=== PATIENT | male | born 1965 | race Two or more races ===

== ENCOUNTER 2021-05-26 15:51 | Emergency (ER) | payer SELFPAY ==
[~2021-05-26] VITALS: Ht 172.7 cm; Wt 56.7 kg
--- NOTE | 2021-05-26 16:20 | NUR ---
Dr Patel at the bedside for MSE.
[2021-05-26] MEDS ORDERED: HYDROCODONE/APAP 5-325MG TABLET PO ONE (16:30)
[2021-05-26] MEDS ORDERED: HYDROCODONE/APAP 5-325MG TABLET ONE (16:33)
[2021-05-26] MEDS ORDERED: IBUP-1955 PO (17:00)
[2021-05-26] MEDS ORDERED: HYDR-4209 PO (17:00)
--- NOTE | 2021-05-26 17:29 | NUR ---
Crutches dispensed. Pt instructed on proper use of crutches. Patient able to demonstrate correct use of crutches.
[2021-05-26 17:35] VITALS: BP 130/82
--- NOTE | 2021-05-26 17:36 | NUR ---
Patient given written and verbal discharge instructions. Patient verbalizes understanding of instructions. Patient is ambulatory with steady gait. Refuses offer of custodial placement. Patient given list of available shelters in surrounding area.
== END 2021-05-26 17:36 | disposition home or self-care (01) ==
LOC: ER 15:56
DX: S93.401A Sprain of unspecified ligament of right ankle, initial encounter (principal); X50.9XXA Other and unspecified overexertion or strenuous movements or postures, initial encounter; Y93.02 Activity, running; Y92.410 Unspecified street and highway as the place of occurrence of the external cause; Z59.00 Homelessness unspecified; R03.0 Elevated blood-pressure reading, without diagnosis of hypertension
CPT/HCPCS: 73610; A4663

== ENCOUNTER 2021-11-11 11:59 | Emergency (ER) | payer MEDICAID, OTHER ==
[~2021-11-11] VITALS: Ht 172.7 cm; Wt 81.6 kg
[~2021-11-11 11:59] MED LIST: HYDR-4209 PO; IBUP-1955 PO
--- NOTE | 2021-11-11 12:38 | NUR ---
Patient walked into ER A/O x4. NAD distress noted.
--- NOTE | 2021-11-11 12:50 | NUR ---
Dr. Freeman at bedside. MSE in progress.
--- NOTE | 2021-11-11 14:46 | NUR ---
Patient discharged to home in stable condition. Written and verbal after care instructions given. Patient verbalizes understanding of instructions. Stressed follow up or return to ER for worsening s/s.
[2021-11-11 14:47] VITALS: BP 144/83
== END 2021-11-11 14:48 | disposition home or self-care (01) ==
LOC: ER 11:59
DX: S43.102A Unspecified dislocation of left acromioclavicular joint, initial encounter (principal); X58.XXXA Exposure to other specified factors, initial encounter; Y92.89 Other specified places as the place of occurrence of the external cause; Z59.00 Homelessness unspecified
CPT/HCPCS: 73030; A4663

== ENCOUNTER 2021-12-05 12:31 | Emergency (ER) | payer OTHER ==
[~2021-12-05] VITALS: Ht 172.7 cm; Wt 79.4 kg
[2021-12-05] MEDS ORDERED: ACETAMINOPHEN ES 500 MG TABLET PO ONE (13:30)
[2021-12-05] MEDS ORDERED: CEphaleXIN 500 MG CAPSULE PO ONE (13:30)
[2021-12-05] MEDS ORDERED: SULFAMETH/TRIMETH 800/160 MG TABLET PO ONE (13:30)
[2021-12-05] MEDS ORDERED: IBUPROFEN 600 MG TABLET PO ONE (13:30)
[2021-12-05] MEDS ORDERED: SULFAMETH/TRIMETH 800/160 MG TABLET ONE (13:42)
[2021-12-05] MEDS ORDERED: IBUPROFEN 600 MG TABLET ONE (13:43)
[2021-12-05] MEDS ORDERED: CEphaleXIN 500 MG CAPSULE ONE (13:43)
[2021-12-05] MEDS ORDERED: ACETAMINOPHEN ES 500 MG TABLET ONE (13:44)
[2021-12-05] MEDS ORDERED: LIDOCAINE HCL 1% 20 ML VIAL IJ ONE (13:45)
[2021-12-05] MEDS ORDERED: LIDOCAINE HCL 1% 20 ML VIAL ONE (13:45)
--- NOTE | 2021-12-05 13:52 | NUR ---
Lidocaine to be administered by administered at his discretion.
[2021-12-05] MEDS ORDERED: CEPH500C2 PO (14:22)
[2021-12-05] MEDS ORDERED: SULF1TAB48 PO (14:22)
--- NOTE | 2021-12-05 15:15 | NUR ---
Patient dcd b elio Wilson.
== END 2021-12-05 15:21 | disposition home or self-care (01) ==
LOC: EDBD → ER 12:31
DX: S80.26 Insect bite (nonvenomous) of knee (principal); L03.115 Cellulitis of right lower limb; L02.415 Cutaneous abscess of right lower limb; W57.XXXS Bitten or stung by nonvenomous insect and other nonvenomous arthropods, sequela; F17.200 Nicotine dependence, unspecified, uncomplicated
CPT/HCPCS: 99284; 10060; 76882; J3490; A4663; A9150

== ENCOUNTER 2021-12-06 21:00 | Emergency (ER) | payer OTHER ==
[~2021-12-06 21:00] MED LIST changes: +CEPH500C2 PO; -HYDR-4209 PO; -IBUP-1955 PO; +SULF1TAB48 PO
--- NOTE | 2021-12-06 22:10 | NUR ---
Patient was called to be triaged but was not present in the waiting room or outside of ER.
--- NOTE | 2021-12-06 22:30 | NUR ---
Patient was called to be triaged but was not present in the waiting room or outside of ER.
--- NOTE | 2021-12-06 23:00 | NUR ---
Patient was called to be triaged but was not present in the waiting room or outside of ER. PATIENT WAS NOT TRIAGED OR SEEN BY [facility].
== END 2021-12-06 23:19 | disposition left against medical advice (07) ==
LOC: ER 21:00
DX: Z53.21 Procedure and treatment not carried out due to patient leaving prior to being seen by health care provider (principal)